=== PATIENT | female | born 2000 | race Caucasian/White ===

== ENCOUNTER 2022-06-04 02:40 | Emergency (ER) | payer MEDICARE ==
[~2022-06-04] VITALS: Ht 170.2 cm; Wt 88.9 kg
[2022-06-04] MEDS ORDERED: ONDANSETRON HCL INJ 2MG/ML 2ML 2 MG/ML VIAL IV STA ×2 (02:54→05:10)
[2022-06-04] MEDS ORDERED: Morphine 4mg INJECTION 4 MG/ML INJ IV STA (02:54)
[2022-06-04 03:03] LABS: BASOPHILS % 0.2 % (0.0-1.0); EOSINOPHILS # (AUTO) 0.1 (0.0-0.4); EOSINOPHILS % 0.7 % (0.0-6.0); HEMATOCRIT 33.8 % (34.2-44.1); HEMOGLOBIN 11.2 g/dL (12.0-16.0); LYMPHOCYTES # (AUTO) 2.6 (1.0-3.2); LYMPHOCYTES % 21.5 % (18.0-39.1); MEAN CORPUSCULAR HEMOGLOBIN 26.8 pg (28-32); MEAN CORPUSCULAR HGB CONC 33.1 g/dL (31-35); MEAN CORPUSCULAR VOLUME 80.9 fL (81-99); MONOCYTES % 8.4 % (4.4-11.3); NEUTROPHILS # (AUTO) 8.4 (2.1-6.9); PLATELET COUNT 448 x10e3/uL (140-360); RED BLOOD COUNT 4.18 x10e6/uL (3.6-5.1); RED CELL DISTRIBUTION WIDTH 13.8 % (11.7-14.4)
[2022-06-04 03:19] LABS: CLARITY,URINE SL CLOUDY (CLEAR); COLOR,URINE YELLOW (YELLOW); LEUKOCYTE ESTERASE ,URINE NEGATIVE (NEGATIVE); NITRITE,URINE NEGATIVE (NEGATIVE)
[2022-06-04 03:20] LABS: KETONES,URINE 2+ (NEGATIVE); PROTEIN,URINE DIPSTICK TRACE (NEGATIVE); URINE UROBILINOGEN >=8 mg/dL (0.2 - 1)
[2022-06-04 03:22] LABS: ALBUMIN 3.1 g/dL (3.5-5.0); ALBUMIN/GLOBULIN RATIO 0.6 (0.8-2.0); AMPHETAMINES SCREEN,URINE NEGATIVE (NEGATIVE); ANION GAP 19.1 mmol/L (8-16); BENZODIAZEPINES SCREEN,URINE POSITIVE (NEGATIVE); CALCIUM 9.4 mg/dL (8.4-10.2); CREATININE, SERUM 0.8 mg/dL (0.57-1.11); PHENCYCLIDINE SCREEN,URINE NEGATIVE (NEGATIVE); POTASSIUM 3.1 mmol/L (3.5-5.1)
[2022-06-04 03:25] LABS: BACTERIA,URINE FEW /HPF; RBC,URINE 0-5 /HPF (0-5); WBC,URINE (MAN) 0-5 /HPF (0-5)
[2022-06-04 03:26] LABS: EPITHELIAL CELLS,URINE MANY /LPF
[2022-06-04] MEDS ORDERED: IOPAMIDOL 370 MG/ML 100 ML INFUS..BTL INJ ONE (03:57)
[2022-06-04] MEDS ORDERED: HEPARIN SOD (PORCINE) 5,000 UNIT/ML VIAL IV ONE (04:45)
[2022-06-04] MEDS ORDERED: HEPARIN 25,000 UNIT/D5W 250ML 1,300 UNIT in DEXTROSE 5% 250ML 250 ML IV SCH (04:45)
[2022-06-04 04:55] LABS: INR 1.08; PROTHROMBIN TIME 14.2 seconds (11.9-14.5)
[2022-06-04 04:56] LABS: PARTIAL THROMBOPLASTIN TIME 35.7 seconds (23.8-35.5)
[2022-06-04] MEDS ORDERED: HYDROMORPHONE 1MG/1ML INJ IV STA (05:10)
[2022-06-04] MEDS ORDERED: HEPARIN 25,000 UNIT DRIP IV ONE (06:05)
== END 2022-06-04 08:10 | disposition other institution (70) ==
LOC: ER 02:46
DX: M54.50 Low back pain, unspecified (principal); I82.890 Acute embolism and thrombosis of other specified veins; I82.412 Acute embolism and thrombosis of left femoral vein; F41.9 Anxiety disorder, unspecified; M79.7 Fibromyalgia; N80.9 Endometriosis, unspecified; Z20.822 Contact with and (suspected) exposure to COVID-19
CPT/HCPCS: 36415; 72132; 80053; 80307; 80329; 81001; 84702; 85025; 85610; 85730; 93971; 99284; J1170; J1644; J2270; J2405; Q9967; U0002